=== PATIENT | male | born 1940 | race Caucasian/White ===

== ENCOUNTER → 2017-09-11 | Outpatient (REF) ==
[2017-09-11 15:04] LABS: BASO % 0.6 % (0.0-2.0); EOS # 0.2 (0.0-0.7); EOS % 3.1 % (0-4.0); GRAN # 3.5 (1.4-6.5); GRAN % 50.4 % (42.2-75.2); HEMATOCRIT 44.3 % (42.0-52.0); HEMOGLOBIN 14.5 g/dl (13.5-18.0); LYMPH # 2.5 (1.2-3.4); LYMPH % 36.1 % (20.0-51.0); MEAN CELL VOLUME 98 fl (80.0-100.0); MEAN CORPUSCULAR HEMOGLOBIN 32 pg (27.0-31.0); MEAN CORPUSCULAR HGB CONC 33 g/dl (33.0-37.0); MEAN PLATELET VOLUME 14.6 fl (7.4-10.4); MONO # 0.7 (0.1-0.6); MONO % 9.5 % (1.7-9.3); PLATELET COUNT 136 K/mm3 (130-400); RED BLOOD COUNT 4.53 M/mm3 (4.20-5.60); REDCELL DISTRIBUTION WIDTH-CV 13.8 % (11.5-14.5)
[2017-09-11 15:20] LABS: CREATININE, serum 0.9 mg/dL (0.66-1.25); POTASSIUM 4.2 mmol/L (3.4-5.0)
[2017-09-11 15:48] LABS: THYROID STIMULATING HORMONE 2.15 uIU/mL (0.465-4.680)
== END ==
LOC: ZCOL.LAB 14:52
PROVIDERS: Internal Medicine
DX: I10 Essential (primary) hypertension (principal); Z86.79 Personal history of other diseases of the circulatory system

== ENCOUNTER → 2018-08-28 | Outpatient (CLI) | payer MEDICARE ==
[~2018-08-28] MED LIST: AMOXICILLIN 50500 MG PO; AMOXICILLIN875 MG PO; ASPI325T6 PO; DEPAKOTE 250MG250 MG PO; DEPAKOTE ER 25250 MG; DEPAKOTE ER 25250 MG PO; DESYREL 50MG50 MG PO; FLONASE NASAL S16 GM NS; IBUPROFEN100 MG PO; INTAL IH; KLONOPIN 1MG1 MG PO; LASIX 20MG TABL20 MG PO; LEVAQUIN 5500 MG/TA1 PO; LIPITOR 80MG80 MG PO; LOPRESSOR 550 MG/TAB PO; LORTAB 5/500 501 TAB; NAPRELAN500 MG; NITROSTAT0.4 MG/TAB SL; NORCO 325 MG-51 TAB PO; OCUFLOX OPHTH DR5 ML OS; PEPCID 20MG TAB20 MG PO; PLAVIX 75MG TAB75 MG PO; TOBRADEX EYE DRO5 ML OP; VITAMIN B650 MG PO; VITAMIN C500 MG; WELLBUTRIN 100100 MG; WELLBUTRIN 75MG75 MG PO; WELLBUTRIN SR150 M1 PO; ZYPREXA 5MG5 MG PO; [UNRECOGNIZED DRUG - OTHER] OU; eye drops
[2018-08-28 16:13] LABS: BASO % 0.5 % (0.0-2.0); EOS # 0.2 (0.0-0.7); GRAN # 2.7 (1.4-6.5); HEMATOCRIT 44.8 % (42.0-52.0); HEMOGLOBIN 14.6 g/dl (13.5-18.0); LYMPH # 2.2 (1.2-3.4); LYMPH % 37.5 % (20.0-51.0); MEAN CELL VOLUME 99 fl (80.0-100.0); MEAN CORPUSCULAR HEMOGLOBIN 32 pg (27.0-31.0); MEAN CORPUSCULAR HGB CONC 33 g/dl (33.0-37.0); MEAN PLATELET VOLUME 14.2 fl (7.4-10.4); MONO # 0.6 (0.1-0.6); MONO % 10.8 % (1.7-9.3); PLATELET COUNT 159 K/mm3 (130-400); RED BLOOD COUNT 4.54 M/mm3 (4.20-5.60)
[2018-08-28 16:49] LABS: ALBUMIN 3.6 gm/dL (3.5-5.0); BILIRUBIN,TOTAL 0.3 mg/dL (0.0-1.0); CALCIUM 9.1 mg/dL (8.4-10.2); CHOLESTEROL RISK RATIO 5.6; CREATININE, serum 1.01 (0.66-1.25); POTASSIUM 4.5 mmol/L (3.4-5.0)
[2018-08-28 17:07] LABS: VALPROIC ACID (DEPAKENE) 44.6 ug/mL (50.0-100.0)
== END ==
LOC: ZCOL.LAB 15:43
DX: I95.9 Hypotension, unspecified (principal); E78.5 Hyperlipidemia, unspecified; F31.9 Bipolar disorder, unspecified

== ENCOUNTER → 2018-09-12 | Outpatient (CLI) | payer MEDICARE, MEDICAID | LOC: ZCOL.LAB 14:51 | DX: R56.9 Unspecified convulsions (principal) ==

== ENCOUNTER → 2018-09-13 | Outpatient (CLI) | payer MEDICARE, MEDICAID | LOC: ZCOL.LAB 16:12 | DX: R36.9 Urethral discharge, unspecified (principal) ==

== ENCOUNTER → 2019-02-15 | Outpatient (CLI) | payer MEDICARE, MEDICAID ==
[2019-02-15 13:18] LABS: CALCIUM 9.4 mg/dL (8.4-10.2); CREATININE, serum 0.94 (0.66-1.25); POTASSIUM 4.1 mmol/L (3.4-5.0)
== END ==
LOC: ZCOL.LAB 12:43
PROVIDERS: Internal Medicine
DX: R79.89 Other specified abnormal findings of blood chemistry (principal)

== ENCOUNTER → 2019-04-10 | Outpatient (CLI) | payer MEDICARE, MEDICAID ==
[2019-04-10 16:54] LABS: HEMATOCRIT 44.8 % (42.0-52.0); HEMOGLOBIN 14.5 g/dl (13.5-18.0); MEAN CELL VOLUME 99 fl (80.0-100.0); MEAN CORPUSCULAR HEMOGLOBIN 32 pg (27.0-31.0); MEAN CORPUSCULAR HGB CONC 32 g/dl (33.0-37.0); MEAN PLATELET VOLUME 14.7 fl (7.4-10.4); PLATELET COUNT 154 K/mm3 (130-400); RED BLOOD COUNT 4.51 M/mm3 (4.20-5.60); REDCELL DISTRIBUTION WIDTH-CV 14.1 % (11.5-14.5)
[2019-04-10 18:06] LABS: COLLECTION METHOD CLEAN CATCH
[2019-04-10 18:14] LABS: MUCOUS Present /lpf; PH 6 (5-8); SQUAMOUS EPITHELIAL None Seen /hpf; URINE APPEARANCE Clear; URINE BACTERIA None Seen /hpf; URINE BILIRUBIN Negative (NEGATIVE); URINE BLOOD Negative (NEGATIVE); URINE COLOR Straw; URINE GLUCOSE Negative (NEGATIVE); URINE KETONE Negative (NEGATIVE); URINE LEUKOCYTE ESTERASE Negative (NEGATIVE); URINE NITRATE Negative (NEGATIVE); URINE PROTEIN(semi-quant) Negative (NEGATIVE); URINE RBC None Seen /hpf; URINE UROBILINOGEN Negative (NEGATIVE)
[2019-04-10 21:25] LABS: ALBUMIN 3.7 gm/dL (3.5-5.0); BILIRUBIN,TOTAL 0.2 mg/dL (0.0-1.0); CALCIUM 9.5 mg/dL (8.4-10.2); CREATININE, serum 1.01 (0.66-1.25); POTASSIUM 4.6 mmol/L (3.4-5.0); TOTAL PROTEIN 5.7 gm/dL (6.4-8.2)
== END ==
LOC: ZCOL.LAB 15:45
PROVIDERS: Internal Medicine
DX: N39.0 Urinary tract infection, site not specified (principal); R68.89 Other general symptoms and signs; R79.89 Other specified abnormal findings of blood chemistry

== ENCOUNTER → 2019-07-08 | Outpatient (CLI) | payer MEDICARE, MEDICAID ==
[2019-07-08 19:55] LABS: CALCIUM 9.3 mg/dL (8.4-10.2); CREATININE, serum 0.93 (0.66-1.25); POTASSIUM 4.2 mmol/L (3.4-5.0)
== END ==
LOC: ZCOL.LAB 18:03
PROVIDERS: Internal Medicine
DX: E87.8 Other disorders of electrolyte and fluid balance, not elsewhere classified (principal)

== ENCOUNTER → 2019-08-13 | Outpatient (CLI) | payer MEDICARE, MEDICAID ==
[2019-08-13 10:46] LABS: CALCIUM 8.8 mg/dL (8.4-10.2); CREATININE, serum 0.96 (0.66-1.25); POTASSIUM 4.1 mmol/L (3.4-5.0)
== END ==
LOC: ZCOL.LAB 08:33
PROVIDERS: Internal Medicine
DX: F31.64 Bipolar disorder, current episode mixed, severe, with psychotic features (principal)

== ENCOUNTER → 2019-09-05 | Outpatient (CLI) | payer MEDICARE, MEDICAID ==
[2019-09-05 09:18] LABS: BILIRUBIN UNCONJUGATED 0.2 mg/dL (0.0-1.1); BILIRUBIN,DIRECT 0.2 mg/dL (0.0-0.4); BILIRUBIN,TOTAL 0.3 mg/dL (0.0-1.0); TOTAL PROTEIN 5.1 gm/dL (6.4-8.2)
[2019-09-05 09:20] LABS: BASO % 0.4 % (0.0-2.0); EOS # 0.2 (0.0-0.7); EOS % 3.6 % (0-4.0); GRAN # 1.8 (1.4-6.5); GRAN % 38.2 % (42.2-75.2); HEMOGLOBIN 14.1 g/dl (13.5-18.0); LYMPH # 2.2 (1.2-3.4); MEAN CELL VOLUME 98 fl (80.0-100.0); MEAN CORPUSCULAR HEMOGLOBIN 32 pg (27.0-31.0); MEAN CORPUSCULAR HGB CONC 33 g/dl (33.0-37.0); MEAN PLATELET VOLUME 14.2 fl (7.4-10.4); MONO # 0.6 (0.1-0.6); MONO % 11.6 % (1.7-9.3); PLATELET COUNT 107 K/mm3 (130-400); RED BLOOD COUNT 4.39 M/mm3 (4.20-5.60); REDCELL DISTRIBUTION WIDTH-CV 14.2 % (11.5-14.5)
[2019-09-05 09:24] LABS: VALPROIC ACID (DEPAKENE) 65.2 ug/mL (50.0-100.0)
== END ==
LOC: ZCOL.LAB 08:01
PROVIDERS: Internal Medicine
DX: F31.64 Bipolar disorder, current episode mixed, severe, with psychotic features (principal)

== ENCOUNTER → 2019-10-10 | Outpatient (CLI) | payer MEDICARE, MEDICAID ==
[2019-10-10 19:13] LABS: COLLECTION METHOD CLEAN CATCH
[2019-10-10 19:36] LABS: PH 7 (5-8); SQUAMOUS EPITHELIAL None Seen /hpf; URINE APPEARANCE Clear; URINE BACTERIA None Seen /hpf; URINE BILIRUBIN Negative (NEGATIVE); URINE BLOOD Negative (NEGATIVE); URINE COLOR Straw; URINE GLUCOSE Negative (NEGATIVE); URINE KETONE Negative (NEGATIVE); URINE LEUKOCYTE ESTERASE Negative (NEGATIVE); URINE NITRATE Negative (NEGATIVE); URINE PROTEIN(semi-quant) Negative (NEGATIVE); URINE RBC None Seen /hpf; URINE UROBILINOGEN Negative (NEGATIVE); URINE WBC 0-2 /hpf
== END ==
LOC: ZCOL.LAB 17:41
PROVIDERS: Internal Medicine
DX: N39.0 Urinary tract infection, site not specified (principal)

== ENCOUNTER → 2019-10-11 | Outpatient (CLI) | payer MEDICARE, MEDICAID ==
[2019-10-11 18:26] LABS: BASO % 0.4 % (0.0-2.0); EOS # 0.2 (0.0-0.7); EOS % 2.2 % (0-4.0); GRAN # 3.2 (1.4-6.5); GRAN % 47.1 % (42.2-75.2); HEMATOCRIT 46.5 % (42.0-52.0); LYMPH # 2.9 (1.2-3.4); LYMPH % 42.5 % (20.0-51.0); MEAN CELL VOLUME 99 fl (80.0-100.0); MEAN CORPUSCULAR HEMOGLOBIN 32 pg (27.0-31.0); MEAN CORPUSCULAR HGB CONC 32 g/dl (33.0-37.0); MONO # 0.5 (0.1-0.6); MONO % 7.5 % (1.7-9.3); PLATELET COUNT 121 K/mm3 (130-400); RED BLOOD COUNT 4.71 M/mm3 (4.20-5.60); REDCELL DISTRIBUTION WIDTH-CV 14.8 % (11.5-14.5)
[2019-10-11 19:12] LABS: ALBUMIN 3.7 gm/dL (3.5-5.0); BILIRUBIN,TOTAL 0.4 mg/dL (0.0-1.0); CALCIUM 9.2 mg/dL (8.4-10.2); CREATININE, serum 1.04 (0.66-1.25); POTASSIUM 4.1 mmol/L (3.4-5.0); TOTAL PROTEIN 5.7 gm/dL (6.4-8.2)
== END ==
LOC: ZCOL.LAB 16:03
PROVIDERS: Internal Medicine
DX: F31.64 Bipolar disorder, current episode mixed, severe, with psychotic features (principal)

== ENCOUNTER → 2019-11-11 | Outpatient (CLI) | payer MEDICARE, MEDICAID | LOC: ZCOL.LAB 12:21 | DX: E72.20 Disorder of urea cycle metabolism, unspecified (principal) ==

== ENCOUNTER → 2019-11-21 | Outpatient (CLI) | payer MEDICARE, MEDICAID | LOC: BHSO 13:00 | DX: F31.73 Bipolar disorder, in partial remission, most recent episode manic (principal) ==

== ENCOUNTER → 2019-11-22 | Outpatient (CLI) | payer MEDICARE, MEDICAID | LOC: ZCOL.LAB 18:09 | DX: F31.64 Bipolar disorder, current episode mixed, severe, with psychotic features (principal) ==

== ENCOUNTER → 2020-01-10 | Outpatient (CLI) | payer MEDICARE, MEDICAID ==
[2020-01-10 10:52] LABS: BASO % 0.3 % (0.0-2.0); EOS # 0.3 (0.0-0.7); EOS % 5.3 % (0-4.0); GRAN # 2.3 (1.4-6.5); GRAN % 40.4 % (42.2-75.2); HEMATOCRIT 47.9 % (42.0-52.0); HEMOGLOBIN 15.8 g/dl (13.5-18.0); LYMPH # 2.5 (1.2-3.4); LYMPH % 42.4 % (20.0-51.0); MEAN CELL VOLUME 101 fl (80.0-100.0); MEAN CORPUSCULAR HEMOGLOBIN 33 pg (27.0-31.0); MEAN CORPUSCULAR HGB CONC 33 g/dl (33.0-37.0); MEAN PLATELET VOLUME 14.3 fl (7.4-10.4); MONO # 0.7 (0.1-0.6); MONO % 11.3 % (1.7-9.3); PLATELET COUNT 99 K/mm3 (130-400); RED BLOOD COUNT 4.74 M/mm3 (4.20-5.60); REDCELL DISTRIBUTION WIDTH-CV 14.2 % (11.5-14.5)
[2020-01-10 10:59] LABS: ALBUMIN 4.1 gm/dL (3.5-5.0); BILIRUBIN,TOTAL 0.5 mg/dL (0.0-1.0); CALCIUM 9.3 mg/dL (8.4-10.2); CREATININE, serum 0.94 (0.66-1.25); POTASSIUM 3.9 mmol/L (3.4-5.0); TOTAL PROTEIN 6.2 gm/dL (6.4-8.2)
== END ==
LOC: ZCOL.LAB 09:57
PROVIDERS: Internal Medicine
DX: C82.30 Follicular lymphoma grade IIIa, unspecified site (principal)

== ENCOUNTER → 2020-02-17 | Outpatient (CLI) | payer MEDICARE, MEDICAID ==
[2020-02-17 10:46] LABS: BASO % 0.6 % (0.0-2.0); EOS # 0.3 (0.0-0.7); EOS % 4.5 % (0-4.0); GRAN # 2.9 (1.4-6.5); GRAN % 43.2 % (42.2-75.2); HEMATOCRIT 48.3 % (42.0-52.0); HEMOGLOBIN 16.2 g/dl (13.5-18.0); LYMPH # 2.8 (1.2-3.4); LYMPH % 42.5 % (20.0-51.0); MEAN CELL VOLUME 98 fl (80.0-100.0); MEAN CORPUSCULAR HEMOGLOBIN 33 pg (27.0-31.0); MEAN CORPUSCULAR HGB CONC 34 g/dl (33.0-37.0); MEAN PLATELET VOLUME 14.4 fl (7.4-10.4); MONO # 0.6 (0.1-0.6); MONO % 8.9 % (1.7-9.3); PLATELET COUNT 145 K/mm3 (130-400); RED BLOOD COUNT 4.95 M/mm3 (4.20-5.60); REDCELL DISTRIBUTION WIDTH-CV 14.2 % (11.5-14.5)
[2020-02-17 10:53] LABS: CHOLESTEROL RISK RATIO 4.1
== END ==
LOC: ZCOL.LAB 07:56
PROVIDERS: Internal Medicine
DX: F31.64 Bipolar disorder, current episode mixed, severe, with psychotic features (principal); E55.9 Vitamin D deficiency, unspecified; D51.9 Vitamin B12 deficiency anemia, unspecified

== ENCOUNTER → 2020-03-06 | Outpatient (CLI) | payer MEDICARE, MEDICAID ==
[2020-03-06 17:00] LABS: COLLECTION METHOD CLEAN CATCH
[2020-03-06 17:05] LABS: PH 5 (5-8); SQUAMOUS EPITHELIAL None Seen /hpf; URINE APPEARANCE Clear; URINE BACTERIA None Seen /hpf; URINE BILIRUBIN Negative (NEGATIVE); URINE BLOOD Negative (NEGATIVE); URINE COLOR Yellow; URINE GLUCOSE Negative (NEGATIVE); URINE KETONE Negative (NEGATIVE); URINE LEUKOCYTE ESTERASE Negative (NEGATIVE); URINE NITRATE Negative (NEGATIVE); URINE PROTEIN(semi-quant) Negative (NEGATIVE); URINE RBC None Seen /hpf; URINE UROBILINOGEN Negative (NEGATIVE)
== END ==
LOC: ZCOL.LAB 16:38
PROVIDERS: Internal Medicine Interventional Cardiology
DX: R41.82 Altered mental status, unspecified (principal)

== ENCOUNTER 2021-04-23 09:37 | Emergency (ER) | payer MEDICARE, MEDICAID ==
[~2021-04-23] VITALS: Ht 175.3 cm; Wt 86.4 kg
[2021-04-23 09:38] VITALS: TEMP 97.4
[2021-04-23 12:16] VITALS: BP 107/69; PULSE 56
== END 2021-04-23 12:16 | disposition home or self-care (01) ==
LOC: COL.ER 09:37
DX: S09.90XA Unspecified injury of head, initial encounter (principal); S80.02XA Contusion of left knee, initial encounter; G30.9 Alzheimer's disease, unspecified; Z88.7 Allergy status to serum and vaccine; W19.XXXA Unspecified fall, initial encounter; Y92.129 Unspecified place in nursing home as the place of occurrence of the external cause

== ENCOUNTER 2021-05-26 11:29 | Emergency (ER) | payer MEDICARE, MEDICAID ==
[2021-05-26 11:31] VITALS: TEMP 98.4
[2021-05-26 12:22] LABS: BASO % 0.2 % (0.0-2.0); EOS % 0.3 % (0.0-4.0); GRAN # 6.4 K/mm3 (1.4-6.5); GRAN % 64.9 % (42.2-75.2); HEMATOCRIT 40.9 % (42.0-52.0); HEMOGLOBIN 13.4 g/dl (13.5-18.0); LYMPH % 20.1 % (20.0-51.0); MEAN CELL VOLUME 97 fl (80.0-100.0); MEAN CORPUSCULAR HEMOGLOBIN 32 pg (27-31); MEAN CORPUSCULAR HGB CONC 33 g/dl (33.0-37.0); MEAN PLATELET VOLUME 13.6 fl (7.4-10.4); MONO # 1.4 K/mm3 (0.1-0.6); PLATELET COUNT 156 K/mm3 (130-400); RED BLOOD COUNT 4.21 M/mm3 (4.20-5.60)
[2021-05-26 12:40] LABS: ALANINE AMINOTRANSFERASE 23 U/L (0-55); ALBUMIN 3.5 gm/dL (3.4-4.8); ALKALINE PHOSPHATASE 77 U/L (40-150); ANION GAP 10 mmol/L (7-16); AST,SGOT 21 U/L (5-34); BILIRUBIN,TOTAL 0.4 mg/dL (0.2-1.2); BLOOD UREA NITROGEN 18 mg/dL (8-26); C-REACTIVE PROTEIN 5.86 mg/dL (0.00-0.50); CALCIUM 9.1 mg/dL (8.4-10.2); CARBON DIOXIDE 29 mmol/L (23-31); CHLORIDE 103 mmol/L (98-107); CREATININE, serum 1.09 mg/dL (0.72-1.25); GLUCOSE 91 mg/dL (70-99); SODIUM 142 mmol/L (136-145); TOTAL PROTEIN 6.2 gm/dL (6.2-8.1)
[2021-05-26 12:49] LABS: TROPONIN-I < 0.010 ng/mL (0.00-0.033)
[2021-05-26 15:09] LABS: COLLECTION METHOD CLEAN CATCH
[2021-05-26 15:55] LABS: MUCOUS Present (NOT PRESENT); PH 6 (5-8); SQUAMOUS EPITHELIAL None Seen /hpf (0-10); URINE APPEARANCE Clear (CLEAR/HAZY); URINE BACTERIA None Seen /hpf (NONE SEEN); URINE BILIRUBIN Negative (NEGATIVE); URINE BLOOD Negative (NEGATIVE); URINE COLOR Yellow (YELLOW); URINE GLUCOSE Negative (NEGATIVE); URINE KETONE Trace (NEGATIVE); URINE LEUKOCYTE ESTERASE Negative (NEGATIVE); URINE NITRATE Negative (NEGATIVE); URINE PROTEIN(semi-quant) Negative (NEGATIVE); URINE RBC 20-50 /hpf (0-2); URINE UROBILINOGEN Negative (NEGATIVE)
[2021-05-26 16:35] VITALS: BP 123/60; PULSE 80
== END 2021-05-26 16:37 | disposition home or self-care (01) ==
LOC: COL.ER 11:29
PROVIDERS: Emergency Medicine
DX: E86.0 Dehydration (principal)
CPT/HCPCS: J7040

== ENCOUNTER 2021-06-25 10:53 | Emergency (ER) | payer MEDICARE, MEDICAID ==
[~2021-06-25] VITALS: Ht 182.9 cm; Wt 81.8 kg
[2021-06-25 10:55] VITALS: TEMP 98.5
[2021-06-25 11:26] LABS: BASO % 0.3 % (0.0-2.0); EOS # 0.3 K/mm3 (0.0-0.7); EOS % 3.8 % (0.0-4.0); GRAN % 59.2 % (42.2-75.2); HEMATOCRIT 42.4 % (42.0-52.0); LYMPH # 1.6 K/mm3 (1.2-3.4); LYMPH % 23.1 % (20.0-51.0); MEAN CELL VOLUME 96 fl (80.0-100.0); MEAN CORPUSCULAR HEMOGLOBIN 32 pg (27-31); MEAN CORPUSCULAR HGB CONC 33 g/dl (33.0-37.0); MEAN PLATELET VOLUME 12.6 fl (7.4-10.4); MONO # 0.9 K/mm3 (0.1-0.6); PLATELET COUNT 135 K/mm3 (130-400); RED BLOOD COUNT 4.43 M/mm3 (4.20-5.60); REDCELL DISTRIBUTION WIDTH-CV 14.7 % (11.5-14.5)
[2021-06-25 12:01] LABS: ALANINE AMINOTRANSFERASE 21 U/L (0-55); ALBUMIN 3.5 gm/dL (3.4-4.8); ALKALINE PHOSPHATASE 86 U/L (40-150); ANION GAP 13 mmol/L (7-16); AST,SGOT 17 U/L (5-34); BILIRUBIN,TOTAL 0.4 mg/dL (0.2-1.2); BLOOD UREA NITROGEN 18 mg/dL (8-26); CALCIUM 8.8 mg/dL (8.4-10.2); CARBON DIOXIDE 25 mmol/L (23-31); CHLORIDE 105 mmol/L (98-107); CREATININE, serum 0.93 mg/dL (0.72-1.25); GLUCOSE 87 mg/dL (70-99); LIPASE 41 U/L (8-78); SODIUM 143 mmol/L (136-145); TOTAL PROTEIN 6.2 gm/dL (6.2-8.1)
[2021-06-25 12:08] LABS: TROPONIN-I < 0.010 ng/mL (0.00-0.033)
[2021-06-25 16:17] VITALS: BP 116/64; PULSE 68
== END 2021-06-25 16:17 | disposition home or self-care (01) ==
LOC: COL.ER 10:53
PROVIDERS: Student in an Organized Health Care Education/Training Program
DX: R41.82 Altered mental status, unspecified (principal); R14.0 Abdominal distension (gaseous); G30.9 Alzheimer's disease, unspecified; F02.80 Dementia in other diseases classified elsewhere, unspecified severity, without behavioral disturbance, psychotic disturbance, mood disturbance, and anxiety
CPT/HCPCS: Q9967

== ENCOUNTER 2021-10-12 08:26 | Emergency (ER) | payer MEDICARE, MEDICAID ==
[~2021-10-12] VITALS: Ht 180.3 cm; Wt 90.9 kg
[2021-10-12 08:27] VITALS: TEMP 97.4
[2021-10-12 10:42] VITALS: BP 141/75; PULSE 65
== END 2021-10-12 10:49 | disposition home or self-care (01) ==
LOC: COL.ER 08:26
DX: S09.90XA Unspecified injury of head, initial encounter (principal); S01.01XA Laceration without foreign body of scalp, initial encounter; W18.30XA Fall on same level, unspecified, initial encounter; W22.8XXA Striking against or struck by other objects, initial encounter

== ENCOUNTER 2021-10-15 13:13 | Emergency (ER) | payer MEDICARE, MEDICAID ==
[2021-10-15 13:15] VITALS: TEMP 98.8
[2021-10-15 13:33] LABS: BASO % 0.3 % (0.0-2.0); EOS # 0.1 K/mm3 (0.0-0.7); EOS % 1.3 % (0.0-4.0); GRAN # 4.5 K/mm3 (1.4-6.5); GRAN % 65.2 % (42.2-75.2); HEMATOCRIT 41.5 % (42.0-52.0); LYMPH # 1.6 K/mm3 (1.2-3.4); LYMPH % 22.3 % (20.0-51.0); MEAN CELL VOLUME 92 fl (80.0-100.0); MEAN CORPUSCULAR HEMOGLOBIN 31 pg (27-31); MEAN CORPUSCULAR HGB CONC 34 g/dl (33.0-37.0); MEAN PLATELET VOLUME 13.4 fl (7.4-10.4); MONO # 0.7 K/mm3 (0.1-0.6); MONO % 10.6 % (1.7-9.3); PLATELET COUNT 159 K/mm3 (130-400); RED BLOOD COUNT 4.51 M/mm3 (4.20-5.60); REDCELL DISTRIBUTION WIDTH-CV 15.2 % (11.5-14.5)
[2021-10-15 13:49] LABS: ALBUMIN 3.5 gm/dL (3.4-4.8); BILIRUBIN,TOTAL 0.3 mg/dL (0.2-1.2); CALCIUM 9.2 mg/dL (8.4-10.2); CREATININE, serum 0.97 mg/dL (0.72-1.25); POTASSIUM 3.7 mmol/L (3.5-4.5); TOTAL PROTEIN 5.8 gm/dL (6.2-8.1)
[2021-10-15 16:50] VITALS: BP 122/109; PULSE 67
== END 2021-10-15 16:50 | disposition home or self-care (01) ==
LOC: COL.ER 13:13
PROVIDERS: Physician Assistant
DX: R29.6 Repeated falls (principal)

== ENCOUNTER 2022-04-20 18:27 | Emergency (ER) | payer MEDICARE, MEDICAID ==
[~2022-04-20] VITALS: Ht 177.8 cm; Wt 111.5 kg
[2022-04-20 22:21] VITALS: BP 132/90; PULSE 78; TEMP 99.4
== END 2022-04-20 22:30 | disposition home or self-care (01) ==
LOC: COL.ER 18:27
DX: G30.9 Alzheimer's disease, unspecified (principal); F02.80 Dementia in other diseases classified elsewhere, unspecified severity, without behavioral disturbance, psychotic disturbance, mood disturbance, and anxiety

== ENCOUNTER 2022-12-09 19:36 | Emergency (ER) | payer MEDICARE, MEDICAID ==
[2022-12-09 19:37] VITALS: TEMP 97.5
--- NOTE | 2022-12-09 19:55 | NUR ---
Contacted [facility] to obtain patient report and patient baseline neuro status. Spoke with Kristen? Per Kristen patient is wheel chair bound, full lift and non verbal at baseline. Asked what [facility] was doing with patient. This nurse stated the nurses were placing patient on monitors and starting an IV. Kristen stated the patient was a DNR and he should not be treated. Informed Kristen that even though patient is DNR you still treat. Kristen requested name and title. Afterwards Kristen stated [facility] is trying to get ahold of family because patient was on comfort care prior to EMS arrival. Updated Dr Cuello. Attempting to get ahold of family.
[2022-12-09 20:38] VITALS: BP 114/76; PULSE 87
== END 2022-12-09 20:38 | disposition home or self-care (01) ==
LOC: COL.ER 19:36
DX: K92.0 Hematemesis (principal); G30.8 Other Alzheimer's disease; F02.80 Dementia in other diseases classified elsewhere, unspecified severity, without behavioral disturbance, psychotic disturbance, mood disturbance, and anxiety